=== PATIENT | female | born 1950 | race Two or more races ===

== ENCOUNTER 2017-02-14 14:45 | Emergency (ER) | payer MEDICAID ==
[~2017-02-14] VITALS: Ht 162.6 cm; Wt 96.2 kg
[2017-02-14 16:07] LABS: Basophils # (auto) 0 uL; Basophils % (auto) 0.4 % (0.0-2.0); Eosinophils # (auto) 0 uL; Eosinophils % (auto) 0.3 % (0.0-7.0); Hematocrit 40.4 % (36.0-46.0); Hemoglobin 14.1 g/dL (12.2-16.2); Lymphocytes % (auto) 27.3 % (10.0-50.0); Mean Corpuscular Hemoglobin 34.5 pg (28.0-32.0); Mean Corpuscular Volume 98.6 fL (80.0-100.0); Mean Platelet Volume 8.6 fL (6.9-10.8); Monocytes # (auto) 1.1 uL; Monocytes % (auto) 10.3 % (0.0-12.0); Neutrophils # (auto) 6.7 uL; Neutrophils % (auto) 61.7 % (37.0-80.0); Nucleated Red Blood Cells % 0.2 %; Platelet Count (auto) 173 10^3/uL (140-450); Red Cell Distribution Width 14.3 % (11.8-14.3); White Blood Cell 10.8 10^3/uL (4.4-10.8)
[2017-02-14 16:29] LABS: Albumin 3.2 g/dL (3.4-5.0); BUN/Creatinine Ratio 22.4; Bilirubin, Total 0.6 mg/dL (0.2-1.0); Calcium 9.7 mg/dL (8.5-10.1); Total Protein 7.1 g/dL (6.4-8.2)
== END 2017-02-14 18:47 | disposition home or self-care (01) ==
LOC: ER 14:45
DX: F25.0 Schizoaffective disorder, bipolar type (principal); I10 Essential (primary) hypertension; R42 Dizziness and giddiness
CPT/HCPCS: 36415; 70450; 71010; 80053; 85025; 93005; 99285; J7030

== ENCOUNTER 2018-03-12 13:54 | Inpatient (IN) | payer OTHER, MEDICAID ==
[~2018-03-12] VITALS: Ht 162.6 cm; Wt 116.0 kg
[2018-03-12 14:07] VITALS: BP 97/64
[2018-03-12] MEDS ORDERED: NOREPINEPHRINE 8 MG/250ML KIT 250 ML IV ONE (14:11)
[2018-03-12] MEDS: MIDAZOLAM DRIP 50 mg/50mL 50 ML IV SCH ×2 (14:20→22:09)
[2018-03-12] MEDS ORDERED: DILTIAZEM HCL 25 MG/5 ML VIAL IV ONE ×2 (14:20→14:30)
[2018-03-12] MEDS: NOREPINEPHRINE 8 MG/250ML KIT 250 ML IV SCH (14:26)
[2018-03-12] MEDS ORDERED: PIPERACILLIN-TAZOB 3.375GM 100 ML IV ONE (14:45)
[2018-03-12] MEDS ORDERED: VANCOMYCIN 1GM/250ML 250 ML IV ONE (14:45)
[2018-03-12] MEDS ORDERED: MIDAZOLAM DRIP 50 mg/50mL 50 ML IV ONE (14:50)
[2018-03-12 15:06] LABS: Alanine Aminotransferase 57 U/L (13-56); Anion Gap 14 (5-15); Blood Urea Nitrogen 16 mg/dL (7-18); Calcium 6.9 mg/dL (8.5-10.1); Carbon Dioxide 19 mmol/L (21-32); Chloride 114 mmol/L (98-107); Glucose 167 mg/dL (74-106); Potassium 3.2 mmol/L (3.5-5.1); Sodium 147 mmol/L (136-145)
[2018-03-12 15:10] LABS: Alkaline Phosphatase 59 U/L (45-117); Aspartate Aminotransferase 75 U/L (15-37); BUN/Creatinine Ratio 16.3; Bilirubin, Total 0.3 mg/dL (0.2-1.0); GFR African American 73 mL/min; GFR Non-African American 61 mL/min; Lactic Acid w/Reflex 8.3 mmol/L (0.4-2.0); Total Protein 4.7 g/dL (6.4-8.2)
[2018-03-12 15:16] LABS: INR 1.82 (0.9-1.15); Partial Thromboplastin Time 50.8 sec (23.78-33.04); Prothrombin Time 18.8 sec (9.27-12.13)
[2018-03-12 15:18] LABS: Alcohol, Urine < 3.0 mg/dL (0-5); Amphetamine Screen, Urine NEGATIVE (NEGATIVE); Barbiturate Scree,Urine NEGATIVE (NEGATIVE); Benzodiazephine Screen, Urine NEGATIVE (NEGATIVE); Cannabinoid Screen, Urine NEGATIVE (NEGATIVE); Cocaine Screen, Urine NEGATIVE (NEGATIVE); Opiate Scree,Urine NEGATIVE (NEGATIVE); Phencyclidine Screen, Urine NEGATIVE (NEGATIVE)
[2018-03-12 15:22] VITALS: BP 78/47
[2018-03-12 15:24] LABS: Hemoglobin 7.4 g/dL (12.2-16.2); Platelet Count (auto) 78 10^3/uL (140-450); Red Cell Distribution Width 14.8 % (11.8-14.3)
[2018-03-12 15:26] LABS: Hematocrit 22.9 % (36.0-46.0); Mean Corpuscular Hgb Conc. 32.4 g/dL (32.0-36.0); Mean Corpuscular Volume 107.8 fL (80.0-100.0); Red Blood Cells 2.12 10^6/uL (4.0-5.20); White Blood Cell 4.6 10^3/uL (4.4-10.8)
[2018-03-12 15:26] LABS: Urine Bacteria NONE SEEN /hpf (None Seen); Urine Blood Negative /uL (Negative); Urine Mucus FEW (None Seen); Urine Specific Gravity 1.009 (1.001-1.035); Urine WBC 1 /hpf (0 - 5)
[2018-03-12] MEDS: PHENYLEPHRINE INJ 20 MG in SODIUM CHL 0.9% 250 ML IV SCH (15:36)
[2018-03-12 15:40] LABS: Basophils % (manual) 0 (0.0-2.0); Blast Cells 0; Eosinophils % (manual) 0 (0-7); Metamyelocytes % 0; Myelocytes % 0; Promyelocytes % 0; Reactive Lymphocytes 0
[2018-03-12 16:22] VITALS: BP 71/52
[2018-03-12 16:32] LABS: Band Neutrophils % (manual) 2; Lymphocytes % (manual) 52 (10.0-50.0)
[2018-03-12 16:33] LABS: Monocytes % (manual) 5 (0-12)
[2018-03-12] MEDS ORDERED: SODIUM BICARBONATE 8.4 % INJ 50ML VIAL IV ONE ×2 (17:30)
[2018-03-12] MEDS ORDERED: SODIUM CHLORIDE 0.9% 2,000 ML IV ONE (17:30)
[2018-03-12] MEDS ORDERED: NITROGLYCERIN 0.4 MG SL TAB SL PRN (18:30)
[2018-03-12] MEDS ORDERED: DEXTROSE (50%) 50ML SYRG IV PRN (18:30)
[2018-03-12] MEDS ORDERED: PROMETHAZINE HCL 25 MG/ML 1ML IV PRN (18:30)
[2018-03-12] MEDS ORDERED: PANTOPRAZOLE 40 MG/10 ML VIAL IV ONE (18:30)
[2018-03-12] MEDS ORDERED: MORPHINE SULFATE 10 MG/ML INJ 1ML SDV IV PRN ×2 (18:30)
[2018-03-12] MEDS ORDERED: LACTULOSE 20Gm/30ML SOLN PO PRN (18:30)
[2018-03-12 18:31] VITALS: BP 100/68
[2018-03-12] MEDS: SODIUM CHLORIDE 0.9% 1,000 ML IV SCH (18:44)
[2018-03-12] MEDS ORDERED: PHENYLEPHRINE HCL 10 MG/ML VL ONE (20:02)
[2018-03-12 20:07] VITALS: BP 113/65
[2018-03-12] MEDS ORDERED: HCTZ25T PO (20:25)
[2018-03-12] MEDS ORDERED: OLAN20TA17 PO (20:25)
[2018-03-12] MEDS ORDERED: AMLO5TAB13 PO (20:25)
[2018-03-12] MEDS ORDERED: DIVA500T4 PO (20:25)
[2018-03-12] MEDS ORDERED: POTA20TA53 PO (20:25)
[2018-03-12] MEDS ORDERED: PALI234I IM (20:25)
[2018-03-12 22:15] VITALS: BP 94/54
[2018-03-12] MEDS: InsuLIN REG 1unit/0.01ml Soln (100units/ml) SC SCH (23:51)
[2018-03-12] MEDS: ACCU-CHEK COMFORT CURVE STRIP VI SCH (23:52)
[2018-03-13] VITALS (12 sets, daily range): BP systolic 64–126; BP diastolic 42–68
[2018-03-13 00:40] LABS: Hematocrit 38.9 % (36.0-46.0)
[2018-03-13 01:03] LABS: Hemoglobin 12.9 g/dL (12.2-16.2)
[2018-03-13] MEDS: SODIUM CHLORIDE 0.9% 1,000 ML IV SCH ×3 (04:28→18:22)
[2018-03-13] MEDS: PHENYLEPHRINE INJ 20 MG in SODIUM CHL 0.9% 250 ML IV SCH ×4 (05:23→16:15)
[2018-03-13] MEDS: NOREPINEPHRINE 8 MG/250ML KIT 250 ML IV SCH (05:24)
[2018-03-13] MEDS: InsuLIN REG 1unit/0.01ml Soln (100units/ml) SC SCH ×2 (06:07→12:00)
[2018-03-13] MEDS: ACCU-CHEK COMFORT CURVE STRIP VI SCH ×2 (06:07→12:21)
[2018-03-13 06:28] LABS: Basophils # (auto) 0 uL; Basophils % (auto) 0.1 % (0.0-2.0); Eosinophils # (auto) 0 uL; Hemoglobin 12.7 g/dL (12.2-16.2); Lymphocytes # (auto) 1.3 uL; Neutrophils # (auto) 13.3 uL
[2018-03-13 06:32] LABS: Hematocrit 37.4 % (36.0-46.0); Lymphocytes % (auto) 7.8 % (10.0-50.0); Mean Corpuscular Hemoglobin 34.6 pg (28.0-32.0); Mean Corpuscular Hgb Conc. 34.1 g/dL (32.0-36.0); Mean Corpuscular Volume 101.4 fL (80.0-100.0); Monocytes # (auto) 1.6 uL; Monocytes % (auto) 9.9 % (0.0-12.0); Neutrophils % (auto) 82.2 % (37.0-80.0); Nucleated Red Blood Cells % 0.1 %; Platelet Count (auto) 146 10^3/uL (140-450); Red Blood Cells 3.69 10^6/uL (4.0-5.20); Red Cell Distribution Width 14.3 % (11.8-14.3); White Blood Cell 16.2 10^3/uL (4.4-10.8)
[2018-03-13 06:54] LABS: Albumin 2.3 g/dL (3.4-5.0); Calcium 7.1 mg/dL (8.5-10.1); Potassium 3.4 mmol/L (3.5-5.1)
[2018-03-13 06:58] LABS: BUN/Creatinine Ratio 18.9; Bilirubin, Total 0.4 mg/dL (0.2-1.0); INR 1.13 (0.9-1.15); Total Protein 5.5 g/dL (6.4-8.2)
[2018-03-13] MEDS ORDERED: VANCOMYCIN PER PHARMACY 0 MG IV SCH (07:15)
--- NOTE | 2018-03-13 08:30 | NUR ---
WOUND CARE NOTE: ADDED PATIENT TO SKIN INTEGRITY MONITORING D/T LOW TYRONE SCORE 10, INTUBATION STATUS IN ER. PATIENT IS NON RESPONSIVE, VENTED WITH ET TUBE. PER BEDSIDE NURSE, SHE IS WOUND FREE AT THIS TIME. PATIENT IS ICU STATUS, AWAITING PLACEMENT IN ICU WHEN ICU BED BECOMES AVAILABLE. ORDERED SPECIALTY AIR BED AT THIS TIME. PATIENT TO BE PLACED, PENDING DELIVERY BY JUVENAL GALLEGOS. RECOMMEND: FREQUENT TURN SCHEDULE Q 2 HOURS, PRN CONDITION PERMITS, WITH PRESSURE REDISTRIBUTION USING PILLOWS/WEDGES, BID/PRN APPLICATION WITH MOISTURE BARRIER CREAM, OPTIFOAM GENTLE SACRAL DRESSING PREVENTATIVE, SPECIALTY AIR BED, DIETARY CONSULT, CONTINUED MONITORING BY WOUND CARE TEAM.
[2018-03-13] MEDS: VANCOMYCIN 1GM/250ML 250 ML IV SCH ×2 (09:28→22:02)
[2018-03-13] MEDS ORDERED: ENOXAPARIN SOD 40 MG/0.4 ML SYRINGE SC SCH (10:00)
[2018-03-13] MEDS: PANTOPRAZOLE 40 MG/10 ML VIAL IV SCH (11:04)
[2018-03-13 11:55] LABS: Hematocrit 34.4 % (36.0-46.0)
[2018-03-13 11:57] LABS: Hemoglobin 11.8 g/dL (12.2-16.2)
[2018-03-13] MEDS: PIPERACILLIN-TAZOB 3.375GM 100 ML IV SCH ×2 (12:22→18:33)
[2018-03-13] MEDS ORDERED: MAGNESIUM SULF 50% 40 MEQ/10 ML VL IV ONE (13:14)
[2018-03-13] MEDS ORDERED: NALOXONE HCL 1MG/ML 2ML SYRINGE IV ONE (13:14)
[2018-03-13] MEDS ORDERED: EPINEPHrine HCL 1 MG/10 ML SYRG IV ONE (13:14)
[2018-03-13] MEDS ORDERED: SODIUM BICARBONATE 8.4% INJ 50ML SYRINGE IV ONE (13:14)
[2018-03-13] MEDS: VASOPRESSIN 50 UNITS in D5W 5% 247.5 ML IV SCH (15:45)
[2018-03-13] MEDS ORDERED: ALBUMIN 5% 250 ML IV ONE ×2 (20:15)
[2018-03-13] MEDS ORDERED: PHENYLEPHRINE HCL 10 MG/ML VL ONE (20:25)
[2018-03-13] MEDS ORDERED: EPINEPHrine HCL 250 ML IV ONE (22:45)
[2018-03-13] MEDS ORDERED: PHENYLEPHRINE IV ONE (22:50)
[2018-03-13] MEDS: EPINEPHrine HCL INJECTION 4 MG in SODIUM CHL 0.9% 250 ML IV SCH (23:06)
[2018-03-14] VITALS (77 sets, daily range): BP systolic 64–167; BP diastolic 41–85
[2018-03-14] MEDS: PIPERACILLIN-TAZOB 3.375GM 100 ML IV SCH ×4 (00:13→18:04)
[2018-03-14] MEDS: PHENYLEPHRINE INJ 20 MG in SODIUM CHL 0.9% 250 ML IV SCH ×5 (00:19→09:35)
[2018-03-14] MEDS: NOREPINEPHRINE 8 MG/250ML KIT 250 ML IV SCH ×4 (00:20→09:28)
[2018-03-14] MEDS: SODIUM CHLORIDE 0.9% 1,000 ML IV SCH ×3 (02:05→18:19)
[2018-03-14] MEDS: VASOPRESSIN 50 UNITS in D5W 5% 247.5 ML IV SCH ×2 (06:07→18:33)
--- NOTE | 2018-03-14 06:50 | NUR ---
Admit to ICU from ER on vent MOLINA RIOS admitted to ICU via gurney on rn cardiac, intubated and being bagged by Respiratory Therapist. Patient transfered to bed, connected to mechanical ventilator by therapist, JIAN at bedside. Patient connected to ICU monitoring, weighed by bedscale, oriented to Elida Cline RN primary RN, unit, ventilator and sedation. NOTE: PT TO UNIT ON NO SEDATION. PUPILS 4 MM JOSH AND FIXED. NO COUGH OR GAG. SR ON JEEPER OPERATOR. PT TO UNIT ON PHENYLEPHRINE GTT 180 MCG/MIN, VASOPRESSIN GTT AT 0.06 UNIT/MIN, EPI GTT AT 5 MCG/KG/MIN. PT S/P RE WARMING ORAL TEMP 98.6. PT ON SPECIALTY AIR MATTRESS. NO SKIN ISSUES OBSERVED. TLC TO R. GROIN WITH GTT'S INFUSING. 20 G S/L TO L. AC. 20 G S/L TO L WRIST. BED PLACED IN LOWEST POSITION. SIDE RAILS UP X 2. HOB ELEVATED. PT IN FULL VIEW OF RN STATION.
[2018-03-14] MEDS ORDERED: PHENYLEPHRINE IV 250 ML IV ONE ×3 (07:24→11:37)
--- NOTE | 2018-03-14 07:35 | NUR ---
OPENING SHIFT NOTE: Report received from Elida YOUNG, care assumed. Patient has been of sedation since 03/13/17. Pupils are 4 and fixed, no cough or gag noted. Temp 97.9 orally. Pulses weak but palpable radial and pedal. Edema noted on upper and lower extremities. SCD's on bilateral lower extremities. Lungs clear anterior. Patient tolerating vent at this time. Oxygen saturation 92-94%. Bowel sounds hypoactive, soft, non-tender. Avila catheter patent, hung to gravity. Skin dry and intact. Optifoam placed on sacrum for prevention. Patient on specialty air mattress. Patient repositioned on side, bed locked in lowest position. Continue to monitor.
[2018-03-14] MEDS: VANCOMYCIN 1GM/250ML 250 ML IV SCH ×2 (08:42→21:39)
[2018-03-14 08:47] LABS: Albumin 1.9 g/dL (3.4-5.0); BUN/Creatinine Ratio 15.6; Calcium 6.4 mg/dL (8.5-10.1); Potassium 3.5 mmol/L (3.5-5.1)
[2018-03-14 08:48] LABS: Bilirubin, Total 0.5 mg/dL (0.2-1.0); Total Protein 4.4 g/dL (6.4-8.2)
[2018-03-14] MEDS: PANTOPRAZOLE 40 MG/10 ML VIAL IV SCH (10:10)
--- NOTE | 2018-03-14 10:25 | NUR ---
FAMILY: Patient's son Mike and Avery at bedside. All questions and concerns addressed.
--- NOTE | 2018-03-14 10:30 | NUR ---
NEUROLOGY ROUNDS: at bedside assessing patient. He is speaking with both son's regarding neuro status and plan of care. New head CT ordered. EEG ordered for today.
--- NOTE | 2018-03-14 11:19 | NUR ---
NUTRITION CONSULT/ASSESSMENT NOTES Please refer to link notes of nutrition screen form filed under the intervention section of the plan of care for further details. Est. Needs: 1600 kcal to 2100 kcal (15-20 kcal/kgBW), 85 gms to 106 gms pro (0.8-1.0 gms/kgBW). Will continue to monitor pertinent labs and reassess nutrient need prn Thank you for this consult. Addendum: 03/14/18 at [address] Amended: Links added.
--- NOTE | 2018-03-14 12:15 | NUR ---
CAT SCAN: PATIENT TAKEN TO HEAD CT VIA BED WITH PORTABLE VENTILATOR ACCOMPANIED WITH RN, TWO RT'S, AND RADIOLOGY STAFF. VITALS STABLE AT TIME OF DEPARTURE ON LEVOPHED, NOESYNEPHRINE, VASOPRESSIN, AND EPINEPHRINE GTT.
[2018-03-14] MEDS: EPINEPHrine HCL INJECTION 4 MG in SODIUM CHL 0.9% 250 ML IV SCH (12:18)
--- NOTE | 2018-03-14 12:30 | NUR ---
RT Transport Note: Patient transported to CT with RN STEFAN YANG AND RT TEMI SHIPMAN. Patient transported to and from procedure on ventilator with previous ordered settings. Patient on monitoring engineer with alarms set and audible, ambu-bag/mask connected to 02 tank. Patient returned to room with no adverse reaction noted. Transport completed without incident.
--- NOTE | 2018-03-14 12:45 | NUR ---
RETURN FROM CT: Patient returned from CT. Partial linen change performed. Vitals stable at this time. Stool sample obtained and sent to lab for stool occult. Patient repositioned on side. Continue to monitor.
[2018-03-14] MEDS: PHENYLEPHRINE INJ 80 MG in SODIUM CHL 0.9% 250 ML IV SCH ×2 (13:35→20:20)
--- NOTE | 2018-03-14 14:30 | NUR ---
HEALTH CLUB MANAGER AT BEDSIDE
[2018-03-14] MEDS: NOREPINEPHRINE BITARTRATE 32 MG in D5W 5% 218 ML IV SCH (14:37)
--- NOTE | 2018-03-14 15:10 | NUR ---
EEG COMPLETED AT BEDSIDE. HECTOR JOHNSON
--- NOTE | 2018-03-14 16:00 | NUR ---
FAMILY FAMILY AT BEDSIDE ABLE TO ASSIST WITH ADMISSION INFORMATION.
[2018-03-14] MEDS ORDERED: POTA10TA51 PO (16:17)
--- NOTE | 2018-03-14 17:04 | NUR ---
ROUNDING NOTE PATIENT RESTING, STILL NO COUGH OR GAG NOTED AT THIS TIME. VITALS STABLE ON VASOPRESSIVE DRIPS. PATIENT REPOSITIONED AND ORAL CARE PERFORMED. CONTINUE TO MONITOR.
--- NOTE | 2018-03-14 20:00 | NUR ---
OPEN NOTES Assumed care of patient. Patient is DNR status. Patient does not open eyes,pupils are both 4mm fixed. Noted withdraws to pain at the lower limbs. Patient was not on any sedation. VS stable on pressor support. Ongoing IV Levophed at 30 mcg/min, IV Natan-synephrine at 180mcg/min, IV vasopressin at 0.04 units/hr, Epi on standby. Patient is edematous - all limbs elevated with pillow. Repositioned. Oral care done. Full assessment done. OGT to LIS with light greenish output. Right femoral TLC (Zoll catheter) dressing soiled - dressing changed, no infiltration/bleeding/hematoma noted. IV peripheral line at left AC and left hand saline locked. will continue to monitor.
--- NOTE | 2018-03-14 21:00 | NUR ---
PATIENT WAS NOT SEDATED Addendum: 03/15/18 at 0105 by Pat Machuca RN Amended: Links added.
[2018-03-15] VITALS (62 sets, daily range): BP systolic 59–156; BP diastolic 38–72
--- NOTE | 2018-03-15 00:45 | NUR ---
ELIMINATION PATIENT HAD BM X 1 SOFT FORMED BROWNISH STOOL MODERATE AMOUNT. CLEANED, Z-GUARD CREAM APPLIED.
[2018-03-15] MEDS ORDERED: PHENYLEPHRINE HCL 10 MG/ML VL ONE ×2 (01:42→01:52)
[2018-03-15] MEDS ORDERED: PHENYLEPHRINE IV 250 ML IV ONE (01:42)
[2018-03-15] MEDS: PHENYLEPHRINE INJ 80 MG in SODIUM CHL 0.9% 250 ML IV SCH (04:05)
--- NOTE | 2018-03-15 05:30 | NUR ---
Patient bathe/linen change Patient given complete bath. Skin integrity assessed for any changes. Linens changed. Patient repositioned for comfort.
[2018-03-15 05:40] LABS: Basophils # (auto) 0 uL; Basophils % (auto) 0.2 % (0.0-2.0); Eosinophils # (auto) 0.1 uL; Hemoglobin 9.9 g/dL (12.2-16.2); Monocytes # (auto) 1.1 uL
[2018-03-15 05:42] LABS: Eosinophils % (auto) 0.6 % (0.0-7.0); Hematocrit 29.3 % (36.0-46.0); Lymphocytes # (auto) 1.4 uL; Lymphocytes % (auto) 12.4 % (10.0-50.0); Mean Corpuscular Hgb Conc. 33.9 g/dL (32.0-36.0); Mean Corpuscular Volume 100.4 fL (80.0-100.0); Monocytes % (auto) 9.7 % (0.0-12.0); Neutrophils # (auto) 8.5 uL; Neutrophils % (auto) 77.1 % (37.0-80.0); Platelet Count (auto) 89 10^3/uL (140-450); Red Blood Cells 2.91 10^6/uL (4.0-5.20); Red Cell Distribution Width 14.4 % (11.8-14.3); White Blood Cell 11.1 10^3/uL (4.4-10.8)
[2018-03-15 06:07] LABS: Calcium 7.3 mg/dL (8.5-10.1); Potassium 3.2 mmol/L (3.5-5.1)
[2018-03-15] MEDS: SODIUM CHLORIDE 0.9% 1,000 ML IV SCH ×2 (06:18→10:22)
[2018-03-15] MEDS: PIPERACILLIN-TAZOB 3.375GM 100 ML IV SCH ×3 (06:20→12:40)
--- NOTE | 2018-03-15 07:10 | NUR ---
REPORT REPORT GIVEN TO HECTOR CHAUDHARI
--- NOTE | 2018-03-15 07:30 | NUR ---
REPORT: REPORT RECEIVED FROM CAD DRAFTSMAN RN TO RESUME CARE OF PT.
--- NOTE | 2018-03-15 07:50 | NUR ---
HEART RATE/RHYTHM CHANGE: PAGED DR. REYES REGARDING ELEVATED HEART RATE INTO 160-170'S WITH ATRIAL FIBRILLATION. NEW CHANGE AND NEW ONSET OF PT. WAITING FOR CALL BACK.
--- NOTE | 2018-03-15 07:55 | NUR ---
PAGE: DR. REYES PAGED REGARDING ELEVATED HEART RATE AND A-FIB WITH RVR. WAITING FOR CALL BACK.
--- NOTE | 2018-03-15 08:04 | NUR ---
MD CONTACT: SPOKE TO DR. SHAY. HE WOULD LIKE TO SPEAK TO FAMILY TODAY REGARDING STATUS OF PT AT TIME. WILL CALL FAMILY TO SET UPA MEETING.
--- NOTE | 2018-03-15 08:08 | NUR ---
PAGE: PAGED DR. SHAY TO SEE IF HE COULD SCHEDULE A FAMILY MEETING TODAY.
--- NOTE | 2018-03-15 08:10 | NUR ---
PAGE: DR. REYES PAGED REGARDING ELEVATED HEART RATE AND A-FIB WITH RVR. WAITING FOR CALL BACK.
--- NOTE | 2018-03-15 08:10 | NUR ---
MD CALL BACK: SPOKE TO DR. SHAY. HE WOULD LIKE A FAMILY MEETING FOR TODAY BETWEEN 09:30-10:00. WILL NOTIFY FAMILY .
--- NOTE | 2018-03-15 08:15 | NUR ---
FAMILY: SPOKE TO FAMILY. AWARE THAT DR. SHAY WOULD LIKE A FAMILY MEETING TODAY AT 9:30-10:00. FAMILY WILL BE PRESENT AT THAT TIME.
[2018-03-15] MEDS ORDERED: AMIODARONE HCL (50 MG/ ML) 3 ML VIAL IV ONE (08:20)
--- NOTE | 2018-03-15 08:20 | NUR ---
PAGE: DR. PALAFOX PAGED REGARDING ELEVATED HEART RATE AND A-FIB WITH RVR. WAITING FOR CALL BACK.
--- NOTE | 2018-03-15 09:17 | NUR ---
MD CALL: DR. PALAFOX CALLED BACK. UPDATED THAT PT WENT INTO A-FIB RVR. WILL BE DOWN TO ASSESS PT.
--- NOTE | 2018-03-15 09:20 | NUR ---
MD VISIT: DR. PALAFOX IN AT BEDSIDE. UPDATED ON PT STATUS AND NEW ORDERS RECEIVED FOR POTASSIUM REPLACEMENT AND OK TO CONTINUE WITH AMIODARONE.
[2018-03-15] MEDS ORDERED: POTASSIUM CHL 20MEQ/100ML 300 ML IV ONE (09:31)
[2018-03-15] MEDS ORDERED: AMIODARONE HCL 900 MG in DEXTROSE 500 ML IV SCH ×2 (09:36→15:36)
[2018-03-15] MEDS ORDERED: VANCOMYCIN 1GM/250ML 250 ML IV SCH (10:00)
[2018-03-15] MEDS: POTASSIUM CHL 20MEQ/100ML 100 ML IV SCH ×3 (10:00→13:30)
[2018-03-15] MEDS ORDERED: MORPHINE SULFATE 10 MG/ML INJ 1ML SDV IV PRN (10:05)
--- NOTE | 2018-03-15 10:15 | NUR ---
FAMILY MEETING: FAMILY MEETING DONE WITH ALL FAMILY MEMBERS AND DR. SHAY IN CONFERENCE ROOM. DR. SHAY DID UPDATED FAMILY IN DETAIL ON PT STATUS AT TIME, RESULTS OF ALL TESTS, PROCEDURES AND LABS WHICH INCLUDED CT SCAN OF BRAIN HEAD AND EEG RESULTS. AFTER DETAILED EXPLANATION OF PT STATUS AND PROGNOSES, PT FAMILY HAS DECIDED TO KEEP PT A DNR AT TIME AND TO POSSIBLY CONTINUE WITH PALLIATIVE CARE WITH A POSSIBLE DECISION ON TERMINAL WEANING TODAY. FAMILY WOULD LIKE TO HAVE MORE MEMBERS AT BEDSIDE TO SAY THEIR WISHES AND WILL LET STAFF KNOW WHEN THEY WOULD LIKE TO DO A TERMINAL WEAN. DR. SHAY FULLY EXPLAINED ALL PARAMETERS OF WEANING. ALL QUESTIONS AND CONCERNS ADDRESSED.
[2018-03-15] MEDS: NOREPINEPHRINE BITARTRATE 32 MG in D5W 5% 218 ML IV SCH (10:22)
[2018-03-15] MEDS: PANTOPRAZOLE 40 MG/10 ML VIAL IV SCH (10:24)
--- NOTE | 2018-03-15 11:15 | NUR ---
MD VISIT: DR. REYES IN AT BEDSIDE. UPDATED ON PT STATUS AND AWARE OF PAGES THIS AM. OK WITH DR. PALAFOX ORDERS FOR AMIODARONE GTT AND FOR POTASSIUM REPLACEMENT. NO ADDITIONAL ORDERS AT TIME. AWARE THAT DR. SHAY SPOKE TO FAMILY AND THAT FAMILY IS POSSIBLY DECIDING ON A TERMINAL WEAN TODAY. DR. REYES DID SPEAK TO FAMILY IN FULL DETAIL AND ALL QUESTIONS AND CONCERNS ADDRESSED.
[2018-03-15] MEDS ORDERED: MAGNESIUM SULFATE 1GM/100ML 200 ML IV ONE (12:47)
[2018-03-15] MEDS: MAGNESIUM SULFATE 1GM/100ML 100 ML IV SCH ×2 (13:15→14:00)
--- NOTE | 2018-03-15 13:30 | NUR ---
FAMILY: FAMILY IN AT BEDSIDE AND HAS DECIDED TO TERMINALLY WEAN PT. NOTIFIED RT AND ALL FAMILY PRESENT.
--- NOTE | 2018-03-15 13:40 | NUR ---
Respiratory note: TERMINALLY EXTUBATED PATIENT PER DR. KIRA SHAY AND FAMILIES REQUEST. PATIENT'S FAMILY WAS AT BEDSIDE, AWARE OF WHAT WAS TAKING PLACE. RT BRAD CHIU AND RN TORY BEE ALSO AT BEDSIDE. VENTILATOR WAS TAKEN OUT OF PATIENT'S ROOM TO ALLOW FAMILY TO HAVE MORE SPACE.
--- NOTE | 2018-03-15 13:40 | NUR ---
RT: RT AT BEDSIDE. EXTUBATED PATIENT FOR FAMILY REQUEST OF TERMINALLY WEANING TODAY. ALL QUESTIONS AND CONCERNS ADDRESSED.
[2018-03-15] MEDS ORDERED: MORPHINE SULF INJ 2 MG/ML SYRINGE 1ML ONE (13:44)
--- NOTE | 2018-03-15 13:50 | NUR ---
UPDATE: AFTER TERMINAL WEAN WAS DONE AT 1340, PT STARTED TO HAVE DECREASED HEART RATE, NO BLOOD PRESSURE, DID HAVE 1 EPISODE OF MOVING EXTREMITIES BUT NO RESPIRATIONS NOTED. AT 1350, DID CHECK PULSE AND NO PULSE PRESENT. NO SPONTANEOUS BREATHS AND HEART NOT BEATING.
[2018-03-15] MEDS ORDERED: LORazepam 2MG/ML-1ML VIAL IV PRN (14:15)
--- NOTE | 2018-03-15 14:15 | NUR ---
PAGE: DR. REYES PAGED TO REPORT THAT PT AT 1350. WAITING FOR CALL BACK.
--- NOTE | 2018-03-15 14:20 | NUR ---
[facility]: CALLED [facility] TO REPORT PT . CASE NUMBER OF [id number]. WILL CALL BACK TO DETERMINE ELIGIBILITY FOR ORGAN DONATION.
--- NOTE | 2018-03-15 14:20 | NUR ---
PAGE: DR. REYES PAGED TO REPORT THAT PT AT 1350. WAITING FOR CALL BACK.
--- NOTE | 2018-03-15 14:33 | NUR ---
FAMILY: FAMILY LEFT BEDSIDE. AWARE OF EVENTS TO TAKE PLACE AFTER AND ALL QUESTIONS AND CONCERNS ADDRESSED. DID SPEAK TO FAMILY ABOUT MORTUARY REQUEST AND THEY HAVE DECIDED ON [facility] IN [place]. WILL CALL AND NOTIFY ONCE CLEARED FROM [facility] AND [employer].
--- NOTE | 2018-03-15 14:37 | NUR ---
CALL BACK: DR. TAM CALLED BACK. AWARE THAT PT AT 1350. WILL BE HERE TO PRONOUNCE TIME OF .
--- NOTE | 2018-03-15 15:51 | NUR ---
MD VISIT: DR. REYES IN AT BEDSIDE TO PRONOUNCE .
--- NOTE | 2018-03-15 15:58 | NUR ---
[facility]: [facility] CALLED BACK. PT IS AN ELIGIBLE DONATION FOR EYE AND TISSUE. CASE NUMBER REMAINS THE SAME. OK TO NOTIFY AND CALL [employer].
--- NOTE | 2018-03-15 16:10 | NUR ---
MORTGAGE ORIGINATOR: CALLED MORTGAGE ORIGINATOR. SPOKE TO MARIO. MORTGAGE ORIGINATOR WILL CALL BACK TO DETERMINE IF PT IS RELEASED. WAITING FOR CALL BACK.
--- NOTE | 2018-03-15 16:45 | NUR ---
CONTEMPORARY OR MODERN DANCER: CONTEMPORARY OR MODERN DANCER CALLED. CLEARED BY CONTEMPORARY OR MODERN DANCER. WILL CALL [facility].
--- NOTE | 2018-03-15 17:38 | NUR ---
MORTUARY: CALLED [facility]. UPDATED ON PT STATUS.
--- NOTE | 2018-03-15 17:47 | NUR ---
[facility]: CALLED [facility]. WILL CALL BACK ONCE ETA IS ESTABLISHED TO [employer] ATTENDANT PT AND RELEASE BODY TO MORTUARY.
--- NOTE | 2018-03-15 18:00 | NUR ---
MORTUARY: MORTUARY CALLED. ETA OF 45MIN.
--- NOTE | 2018-03-15 18:25 | NUR ---
REMOVAL OF LINES/POST-MORTEM CARE: POST-MORTEM CARE DONE. REMOVED CENTRAL LINE TO RIGHT FEMORAL, REMOVED IV TO LEFT HAND AND IV TO LEFT FOREARM. REMOVED ALL TUBES AND LINES. MCDONALD CATHETER REMOVED. PT DOES HAVE A BROWN BRACELET TO LEFT WRIST THAT FAMILY REQUESTED TO LEAVE ON. BODY CLEANSED AND PLACED IN BODY BAG. PT LABEL CONNECTED TO PT AND BAG. NO ADDITIONAL BELONGINGS AT BEDSIDE.
--- NOTE | 2018-03-15 19:20 | NUR ---
PATIENT DISCHARGED: PT LEFT WITH MORTUARY AFTER PROPER IDENTIFICATION OF WRISTBAND AND TOE TAG. ALL REMAINS LEFT WITH MORTUARY AND AWARE THAT PT LEFT WITH BRACELET TO LEFT WRIST,BROWN IN COLOR.
[2018-03-16 10:00] LABS: Hepatitis B Surface Antibody Negative
[2018-03-16 12:21] LABS: Hepatitis A Total Antibody Positive; Hepatitis B Core Total AB Negative; Hepatitis B Surface Antigen Negative (Negative); Hepatitis C Antibody Negative (Negative)
== END 2018-03-15 19:22 | disposition expired ==
LOC: EDSEX 13:54 → EDBD 13:54 → ER 13:54 → TELE 18:24 → ICU WEST 03-14 06:50
PROVIDERS: ADMIT Internal Medicine; ATTEND Internal Medicine
PROC: 5A1945Z Respiratory Ventilation, 24-96 Consecutive Hours (ICD-10-PCS; principal; 2018-03-12)
PROC: 0BH17EZ Insertion of Endotracheal Airway into Trachea, Via Natural or Artificial Opening (ICD-10-PCS; 2018-03-12)
PROC: 5A12012 Performance of Cardiac Output, Single, Manual (ICD-10-PCS; 2018-03-12)
DX: I21.4 Non-ST elevation (NSTEMI) myocardial infarction (principal); G93.6 Cerebral edema; J96.01 Acute respiratory failure with hypoxia; J69.0 Pneumonitis due to inhalation of food and vomit; N17.0 Acute kidney failure with tubular necrosis; G93.1 Anoxic brain damage, not elsewhere classified; D68.9 Coagulation defect, unspecified; Z68.41 Body mass index [BMI] 40.0-44.9, adult; E87.0 Hyperosmolality and hypernatremia; I46.9 Cardiac arrest, cause unspecified; Z51.5 Encounter for palliative care; D69.6 Thrombocytopenia, unspecified; E78.5 Hyperlipidemia, unspecified; F20.9 Schizophrenia, unspecified; T17.920A Food in respiratory tract, part unspecified causing asphyxiation, initial encounter; X58.XXXA Exposure to other specified factors, initial encounter; I11.9 Hypertensive heart disease without heart failure; I48.91 Unspecified atrial fibrillation; E66.9 Obesity, unspecified; F17.200 Nicotine dependence, unspecified, uncomplicated; D64.9 Anemia, unspecified; R31.29 Other microscopic hematuria; F31.9 Bipolar disorder, unspecified; I95.9 Hypotension, unspecified; E87.6 Hypokalemia; F41.9 Anxiety disorder, unspecified; Z90.49 Acquired absence of other specified parts of digestive tract; Z81.8 Family history of other mental and behavioral disorders; Y93.89 Activity, other specified; Y92.89 Other specified places as the place of occurrence of the external cause; Y99.8 Other external cause status
CPT/HCPCS: 36415; 36600; 70450; 71045; 71250; 74176; 76536; 76705; 80048; 80053; 80202; 80307; 81001; 82140; 82270; 82550; 82805; 82962; 83036; 83605; 83735; 84443; 84484; 85007; 85014; 85018; 85025; 85027; 85045; 85610; 85652; 85730; 86704; 86706; 86708; 86803; 87040; 87070; 87077; 87081; 87086; 87186; 87205; 87340; 93005; 93306; 94002; 94003; 95819; 96365; 96367; 96375; A6257; C9113; G0378; J0171; J1815; J2250; J2543; J3480; J7060